=== PATIENT | male | born 1950 | race Caucasian/White ===

== ENCOUNTER 2021-01-31 05:47 | Day surgery (SDC) | payer MEDICARE ==
[~2021-01-31] VITALS: Ht 182.9 cm; Wt 100.0 kg
[2021-01-31] MEDS ORDERED: SODIUM CHLORIDE 0.9% 1,000 ML IV SCH (07:00)
[2021-01-31 07:05] VITALS: BP 142/91
[2021-01-31] MEDS ORDERED: TAMS-11 PO (07:05)
[2021-01-31] MEDS ORDERED: ASPI81TA45 PO (07:05)
[2021-01-31] MEDS ORDERED: MAGN400T36 PO (07:05)
[2021-01-31] MEDS ORDERED: ARMO150T4 PO (07:05)
[2021-01-31] MEDS ORDERED: GABA600T7 PO (07:05)
[2021-01-31] MEDS ORDERED: EZET10TA70 PO (07:05)
[2021-01-31] MEDS ORDERED: MELA10CA PO (07:05)
[2021-01-31] MEDS ORDERED: VENL75TA PO (07:05)
[2021-01-31] MEDS ORDERED: OXYB5TAB10 PO (07:05)
[2021-01-31] MEDS ORDERED: LIDOCAINE-MPF 1%, 5ML ONE (08:11)
[2021-01-31] MEDS ORDERED: ROPivacaine/PF 0.2%, 10 ML ONE (08:11)
[2021-01-31 10:37] LABS: GLUCOSE, CSF 49 mg/dL (40-80); TOTAL PROTEIN,CSF 60 mg/dL (15-45)
== END 2021-01-31 15:10 | disposition home or self-care (01) ==
LOC: OUT 05:47 → EDSTATUS 07:30 → OUT 15:10
PROVIDERS: ATTEND Nurse Practitioner Family
DX: G61.0 Guillain-Barre syndrome (principal); G31.84 Mild cognitive impairment of uncertain or unknown etiology; R27.0 Ataxia, unspecified; E66.3 Overweight; F17.290 Nicotine dependence, other tobacco product, uncomplicated; Z68.29 Body mass index [BMI] 29.0-29.9, adult; Z79.899 Other long term (current) drug therapy; Z88.8 Allergy status to other drugs, medicaments and biological substances
CPT/HCPCS: 36415; 62328; 70551; 82945; 83873; 84157; 86645; 86695; 86696; 86762; 86777; 86778; 87798; 88108; 89051; J7030; J2795